=== PATIENT | female | born 1975 | race Caucasian/White ===

== ENCOUNTER 2018-09-14 22:58 | Emergency (ER) | payer OTHER ==
[~2018-09-14] VITALS: Ht 167.6 cm; Wt 70.8 kg
[2018-09-14 23:00] VITALS: Ht 167.6 cm; Wt 70.8 kg
[2018-09-15 01:10] VITALS: BP 105/65
== END 2018-09-15 01:10 | disposition home or self-care (01) ==
LOC: ED 22:58
DX: S61.211A Laceration without foreign body of left index finger without damage to nail, initial encounter (principal); Z90.49 Acquired absence of other specified parts of digestive tract; W26.8XXA Contact with other sharp object(s), not elsewhere classified, initial encounter; Y93.89 Activity, other specified; Y92.89 Other specified places as the place of occurrence of the external cause; Y99.8 Other external cause status
CPT/HCPCS: 90715; J2001